=== PATIENT | female | born 2000 | race Caucasian/White ===

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

== ENCOUNTER 2020-09-11 00:42 | Inpatient (IN) | payer BC ==
[2020-09-11] MEDS ORDERED: Misoprostol 25 MCG (1/4 of 100 MCG) Tab PO PRN (01:37)
[2020-09-11] MEDS ORDERED: Terbutaline 1 MG/ML SDV SUBCUT PRN (01:37)
[2020-09-11] MEDS ORDERED: Misoprostol 25 MCG (1/4 of 100 MCG) Tab VAG PRN (01:37)
[2020-09-11] MEDS ORDERED: Oxytocin/0.9 % Sodium Chloride 30 UNIT/500 ML BAG IV SCH (01:45)
[2020-09-11] MEDS ORDERED: Nalbuphine 10 MG/1 ML Vial IVPUSH PRN (03:51)
[2020-09-11] MEDS ORDERED: Nalbuphine 10 MG/1 ML Vial ONE (03:55)
[2020-09-11] MEDS ORDERED: Nalbuphine 10 MG/1 ML Vial IVPUSH ONE (05:00)
[2020-09-11] MEDS: Lactated Ringers 1,000 ML IV SCH ×3 (05:05→10:48)
[2020-09-11] MEDS ORDERED: Lactated Ringers 1,000 ML IV SCH (05:15)
[2020-09-11] MEDS ORDERED: Ropivacaine HCl/PF 200 ML ONE (05:20)
[2020-09-11] MEDS ORDERED: Bupivacaine 0.25% 10 ML SDV ONE (05:20)
--- NOTE | 2020-09-11 05:25 | PCM.LDHP ---
L&D History of Present Illness - General Date of Service: 09/11/20 Admit Problem/Dx: Admission Diagnosis/Problem Admission Diagnosis/Problem 09/11/20 05:19 Dayan is a 19 yo at 41+0 wks (MICHELLE([place]) 09/04/2020) that presents today for post-dates cytotec to pitocin IOL. Reports +FM. Denies LOF, uterine contractions, vaginal bleeding upon arrival. O neg/Ab neg, RI, GBS neg. Last seen in office 2 days ago, IOL with cervical ripening techniques discussed, consents signed. Discussed once more and verbally confirms she desires to continue with IOL today. Denies any other complaints or concerns at this time and desires to continue with IOL. Source of Information: Patient History Limitations: Reports: No Limitations - History of Present Illness Pain Score: 7 Improves with: Reports: None Worsens with: Reports: None Associated Symptoms: Reports: N - Related Data Allergies/Adverse Reactions: Allergies Allergy/AdvReac Type Severity Reaction Status Date / Time No Known Allergies Allergy Verified 09/04/20 13:56 Home Medications: Home Meds . [No Known Home Meds] 06/30/19 [History] Past Medical History - Past Health History Medical/Surgical History: Denies Medical/Surgical History HEENT History: Reports: None Cardiovascular History: Reports: None Respiratory History: Reports: None Gastrointestinal History: Reports: None Genitourinary History: Reports: None RECEPTIONIST/TELEPHONE OPERATOR History: Reports: None : 1 Para: 0 Musculoskeletal History: Reports: None Neurological History: Reports: None Psychiatric History: Reports: Anxiety, Depression Endocrine/Metabolic History: Reports: None Insulin Pump Model and Ent Consultant: None Hematologic History: Reports: None, Other (See Below) (Rh neg, maternal) Immunologic History: Reports: None Oncologic (Cancer) History: Reports: None Dermatologic History: Reports: None - Infectious Disease History Infectious Disease History: Reports: None - Past Surgical History Head Surgeries/Procedures: Reports: None Other Musculoskeletal Surgeries/Procedures:: General anesthetic for closed reduction of a right arm fracture. Social & Family History - Family History Family Medical History: No Pertinent Family History - Tobacco Use Tobacco Use Status *Q: Current Every Day Tobacco User Years of Tobacco use: 5 Packs/Tins Daily: 0.2 Second Hand Smoke Exposure: Yes - Caffeine Use Caffeine Use: Reports: Energy Drinks Other Caffeine Use: daily Caffeine Use Comment: not every day - Recreational Drug Use Recreational Drug Use: Yes Drug Use in Last 12 Months: Yes Recreational Drug Type: Reports: Marijuana/Hashish Recreational Drug Use Frequency: Weekly H&P Review of Systems - Review of Systems: Review Of Systems: Comprehensive ROS is negative, except as noted in HPI. General: Reports: No Symptoms HEENT: Reports: No Symptoms Pulmonary: Reports: No Symptoms Cardiovascular: Reports: No Symptoms Gastrointestinal: Reports: No Symptoms Genitourinary: Reports: No Symptoms Musculoskeletal: Reports: No Symptoms Skin: Reports: No Symptoms Psychiatric: Reports: No Symptoms Neurological: Reports: No Symptoms Hematologic/Lymphatic: Reports: No Symptoms Immunologic: Reports: No Symptoms L&D Exam - Exam Exam: See Below - Vital Signs Vital Signs: VSS, afebrile. See flowsheet. Weight: 190 lb - OB Specific Fundal Height In cm: 39 Contraction Duration (sec): 0 Contraction Frequency (min): 0 Movement: Active Heart Tones: Present Heart Tones per Min: 125 Heart Rate (FHR) Variability: Moderate (6-25 bmp) Presentation: Vertex (via SVE) - Pak Score Pak Score Cervix Position: Midposition Pak Score Consistency: Medium Pak Score Effacement: >80% Pak Score Dilation: 1-2 cm Pak Score Infant's Station: -2 Pak Score Total: 7 - Exam General: Alert, Oriented, Cooperative HEENT: Conjunctiva Clear, Hearing Intact, Mucosa Moist & [place], PERRLA Neck: Supple, Trachea Midline Lungs: Clear to Auscultation, Normal Respiratory Effort Cardiovascular: Regular Rate, Regular Rhythm GI/Abdominal Exam: Normal Bowel Sounds, Soft, Non-Tender, No Organomegaly, No Distention Rectal Exam: Deferred Genitourinary: Normal external exam, Normal bimanual exam, Enlarged uterus (Gravid uterus) Back Exam: Normal Inspection, Full Range of Motion Extremities: Normal Inspection, Normal Range of Motion, Non-Tender, No Pedal Edema, Normal Capillary Refill Skin: Warm, Dry, Intact Neurological: Cranial Nerves Intact, Reflexes Equal Bilateral Psychiatric: Alert, Normal Affect, Normal Mood - Patient Data Lab Results Last 24 hrs: Laboratory Results - last 24 hr 09/11/20 09/11/20 09/11/20 Range/Units 00:45 00:45 01:50 WBC 12.41 H (4.0-11.0) K/uL RBC 3.06 L (4.30-5.90) M/uL Hgb 10.2 L (12.0-16.0) g/dL Hct 30.2 L (36.0-46.0) % MCV 98.7 H (80.0-98.0) fL MCH 33.3 H (27.0-32.0) pg MCHC 33.8 (31.0-37.0) g/dL RDW Std Deviation 46.0 (28.0-62.0) fl RDW Coeff of [place] 13 (11.0-15.0) % Plt Count 198 (150-400) K/uL MPV 12.00 (7.40-12.00) fL Neut % (Auto) 73.9 (48.0-80.0) % Lymph % (Auto) 20.2 (16.0-40.0) % [place] % (Auto) 5.6 (0.0-15.0) % Eos % (Auto) 0.1 (0.0-7.0) % Baso % (Auto) 0.2 (0.0-1.5) % Neut # (Auto) 9.2 H (1.4-5.7) K/uL Lymph # (Auto) 2.5 H (0.6-2.4) K/uL [place] # (Auto) 0.7 (0.0-0.8) K/uL Eos # (Auto) 0.0 (0.0-0.7) K/uL Baso # (Auto) 0.0 (0.0-0.1) K/uL Nucleated RBC % 0.0 /100WBC Nucleated RBCs # 0 K/uL SARS-CoV-2 RNA (SARAHI) NEGATIVE (NEGATIVE) Blood Type O NEGATIVE Antibody Screen NEGATIVE Result Diagrams: 09/11/20 00:45 - Problem List (1) Encounter for induction of labor SNOMED Code(s): 875752121 ICD Code: Z34.90 - ENCNTR FOR SUPRVSN OF NORMAL , UNSP, UNSP TRIMESTER Status: Acute Priority: High Current Visit: Yes (2) Post-dates SNOMED Code(s): 68497608 ICD Code: O48.0 - POST-TERM Status: Acute Priority: High Current Visit: Yes Qualifiers: Post-term type: 40-42 weeks gestation Qualified Code(s): O48.0 - Post-term (3) 41 weeks gestation of SNOMED Code(s): 23251520 ICD Code: Z3A.41 - 41 WEEKS GESTATION OF Status: Acute Priority: High Current Visit: Yes Problem List Initiated/Reviewed/Updated: Yes Orders Last 24hrs: Active Orders 24 hr Category Date Time Status Bedrest Bathroom Privileges [RC] ASDIRECTED Care 09/11/20 01:37 Active Communication Order [RC] ASDIRECTED Care 09/11/20 01:37 Active Communication Order [RC] ASDIRECTED Care 09/11/20 01:37 Active Communication Order [RC] ASDIRECTED Care 09/11/20 01:37 Active Notify Provider [RC] PRN Care 09/11/20 01:37 Active Notify Provider [RC] PRN Care 09/11/20 01:37 Active Notify Provider [RC] STAT Care 09/11/20 01:37 Active Oxygen Therapy [RC] ASDIRECTED Care 09/11/20 01:37 Active Vaginal Exam [RC] PRN Care 09/11/20 01:37 Active Vital Signs [RC] PER UNIT ROUTINE Care 09/11/20 01:37 Active RPR (SYPHILIS SERO) W/ RFLX [REF] Routine Lab 09/11/20 00:45 Received Lactated Ringers [Ringers, Lactated] 1,000 ml Med 09/11/20 05:15 Active IV .BOLUS Lactated Ringers [Ringers, Lactated] 1,000 ml Med 09/11/20 05:15 Active IV ASDIRECTED Nalbuphine [Nubain] Med 09/11/20 03:51 Active 10 mg IVPUSH ONETIME PRN Oxytocin/0.9 % Sodium Chloride [Oxytocin 30 Unit/500 ML Med 09/11/20 01:45 Active -NS] 30 unit in 500 ml IV TITRATE Terbutaline [Brethine] Med 09/11/20 01:37 Active 0.25 mg SUBCUT ASDIRECTED PRN miSOPROStoL [Cytotec] Med 09/11/20 01:37 Active 25 mcg PO Q4H PRN miSOPROStoL [Cytotec] Med 09/11/20 01:37 Active 25 mcg VAG ONETIME PRN Medication Administration Instruction [OM.PC] Q3H Oth 09/11/20 01:45 Ordered Medication Orders Oxytocin/Sodium Chloride (Oxytocin 30 Unit/500 Ml-Ns) 30 unit in 500 mls @ 2 mls/hr IV TITRATE RONAN; Protocol Lactated Ringer's (Ringers, Lactated) 1,000 mls @ 150 mls/hr IV ASDIRECTED RONAN Last Admin: 09/11/20 05:05 Dose: 150 mls/hr Documented by: SARA Lactated Ringer's (Ringers, Lactated) 1,000 mls @ 999 mls/hr IV .BOLUS RONAN Misoprostol (Misoprostol 25 Mcg (1/4 Of 100 Mcg) Tab) 25 mcg VAG ONETIME PRN PRN Reason: Cervical Ripening Last Admin: 09/11/20 02:00 Dose: 25 mcg Documented by: SARA Misoprostol (Misoprostol 25 Mcg (1/4 Of 100 Mcg) Tab) 25 mcg PO Q4H PRN PRN Reason: Cervical Ripening Last Admin: 09/11/20 02:00 Dose: 25 mcg Documented by: SARA Nalbuphine HCl (Nalbuphine 10 Mg/1 Ml Vial) 10 mg IVPUSH ONETIME PRN PRN Reason: Pain (moderate 4-6) Terbutaline Sulfate (Terbutaline 1 Mg/Ml Sdv) 0.25 mg SUBCUT ASDIRECTED PRN PRN Reason: Tacysystole Assessment/Plan Comment:: Admit for observation to L&D for planned post-dates cytotec to pitocin IOL. Regular diet. May ambulate ad judi. Intermittent EFM: once reactive NST is obtained, or as indicated. May receive epidural >/=5 cm[address] See new orders. Dr. Corbett notified and agreeable with POC.
--- NOTE | 2020-09-11 05:54 | PCM.PREANE ---
Preanesthetic Assessment - Anesthesia/Transfusion/Family Hx Anesthesia History: Prior Anesthesia Without Reaction Family History of Anesthesia Reaction: No Transfusion History: No Prior Transfusion(s) - Review of Systems General: No Symptoms Pulmonary: No Symptoms Cardiovascular: No Symptoms Gastrointestinal: No Symptoms Neurological: No Symptoms Other: Reports: None - Physical Assessment Height: 5 ft 7 in Weight: 190 lb ASA Class: 2E Mental Status: Alert & Oriented x3 Dentition: Reports: Normal Dentition ROM/Head Extension: Full Lungs: Clear to Auscultation, Normal Respiratory Effort Cardiovascular: Regular Rate, Regular Rhythm - Lab Values: Laboratory Last Values WBC 12.41 K/uL (4.0-11.0) H 09/11/20 00:45 RBC 3.06 M/uL (4.30-5.90) L 09/11/20 00:45 Hgb 10.2 g/dL (12.0-16.0) L 09/11/20 00:45 Hct 30.2 % (36.0-46.0) L 09/11/20 00:45 MCV 98.7 fL (80.0-98.0) H 09/11/20 00:45 MCH 33.3 pg (27.0-32.0) H 09/11/20 00:45 MCHC 33.8 g/dL (31.0-37.0) 09/11/20 00:45 RDW Std Deviation 46.0 fl (28.0-62.0) 09/11/20 00:45 RDW Coeff of Luba 13 % (11.0-15.0) 09/11/20 00:45 Plt Count 198 K/uL (150-400) 09/11/20 00:45 MPV 12.00 fL (7.40-12.00) 09/11/20 00:45 Neut % (Auto) 73.9 % (48.0-80.0) 09/11/20 00:45 Lymph % (Auto) 20.2 % (16.0-40.0) 09/11/20 00:45 [place] % (Auto) 5.6 % (0.0-15.0) 09/11/20 00:45 Eos % (Auto) 0.1 % (0.0-7.0) 09/11/20 00:45 Baso % (Auto) 0.2 % (0.0-1.5) 09/11/20 00:45 Neut # (Auto) 9.2 K/uL (1.4-5.7) H 09/11/20 00:45 Lymph # (Auto) 2.5 K/uL (0.6-2.4) H 09/11/20 00:45 [place] # (Auto) 0.7 K/uL (0.0-0.8) 09/11/20 00:45 Eos # (Auto) 0.0 K/uL (0.0-0.7) 09/11/20 00:45 Baso # (Auto) 0.0 K/uL (0.0-0.1) 09/11/20 00:45 Nucleated RBC % 0.0 /100WBC 09/11/20 00:45 Nucleated RBCs # 0 K/uL 09/11/20 00:45 SARS-CoV-2 RNA (SARAHI) NEGATIVE (NEGATIVE) 09/11/20 01:50 Blood Type O NEGATIVE 09/11/20 00:45 Antibody Screen NEGATIVE 09/11/20 00:45 - Allergies Allergies/Adverse Reactions: Allergies Allergy/AdvReac Type Severity Reaction Status Date / Time No Known Allergies Allergy Verified 09/04/20 13:56 - Anesthesia Plan Pre-Op Medication Ordered: None - Acknowledgements Anesthesia Type Planned: Epidural Pt an Appropriate Candidate for the Planned Anesthesia: Yes Alternatives and Risks of Anesthesia Discussed w Pt/Guardian: Yes Pt/Guardian Understands and Agrees with Anesthesia Plan: Yes PreAnesthesia Questionnaire - Past Health History Medical/Surgical History: Denies Medical/Surgical History HEENT History: Reports: None Cardiovascular History: Reports: None Respiratory History: Reports: None Gastrointestinal History: Reports: None Genitourinary History: Reports: None CRIMINALIST History: Reports: None Musculoskeletal History: Reports: None Neurological History: Reports: None Psychiatric History: Reports: Anxiety, Depression Endocrine/Metabolic History: Reports: None Hematologic History: Reports: None, Other (See Below) (Rh neg, maternal) Immunologic History: Reports: None Oncologic (Cancer) History: Reports: None Dermatologic History: Reports: None - Infectious Disease History Infectious Disease History: Reports: None - Past Surgical History Head Surgeries/Procedures: Reports: None Other Musculoskeletal Surgeries/Procedures:: General anesthetic for closed reduction of a right arm fracture. - SUBSTANCE USE Tobacco Use Status *Q: Current Every Day Tobacco User Tobacco Use Within Last Twelve Months: Vaping Second Hand Smoke Exposure: Yes Recreational Drug Use History: Yes Recreational Drug Type: Reports: Marijuana/Hashish - HOME MEDS Home Medications: Home Meds . [No Known Home Meds] 06/30/19 [History] - CURRENT (IN HOUSE) MEDS Current Meds: Current Medications Oxytocin/Sodium Chloride (Oxytocin 30 Unit/500 Ml-Ns) 30 unit in 500 mls @ 2 mls/hr IV TITRATE RONNA; Protocol Lactated Ringer's (Ringers, Lactated) 1,000 mls @ 150 mls/hr IV ASDIRECTED RONAN Last Admin: 09/11/20 05:05 Dose: 150 mls/hr Documented by: Lactated Ringer's (Ringers, Lactated) 1,000 mls @ 999 mls/hr IV .BOLUS RONAN Misoprostol (Misoprostol 25 Mcg (1/4 Of 100 Mcg) Tab) 25 mcg VAG ONETIME PRN PRN Reason: Cervical Ripening Last Admin: 09/11/20 02:00 Dose: 25 mcg Documented by: Misoprostol (Misoprostol 25 Mcg (1/4 Of 100 Mcg) Tab) 25 mcg PO Q4H PRN PRN Reason: Cervical Ripening Last Admin: 09/11/20 02:00 Dose: 25 mcg Documented by: Nalbuphine HCl (Nalbuphine 10 Mg/1 Ml Vial) 10 mg IVPUSH ONETIME PRN PRN Reason: Pain (moderate 4-6) Terbutaline Sulfate (Terbutaline 1 Mg/Ml Sdv) 0.25 mg SUBCUT ASDIRECTED PRN PRN Reason: Tacysystole Discontinued Medications Bupivacaine HCl (Bupivacaine 0.25% 10 Ml Sdv) Confirm Administered Dose 10 ml .ROUTE .STK-MED ONE Stop: 09/11/20 05:21 Ropivacaine (Naropin 0.2%) Confirm Administered Dose 200 mls @ as directed .ROUTE .STK-MED ONE Stop: 09/11/20 05:21 Nalbuphine HCl (Nalbuphine 10 Mg/1 Ml Vial) Confirm Administered Dose 10 mg .ROUTE .STK-MED ONE Stop: 09/11/20 03:56 Last Admin: 09/11/20 04:07 Dose: 10 mg Documented by: Nalbuphine HCl (Nalbuphine 10 Mg/1 Ml Vial) 10 mg IVPUSH ONETIME ONE Stop: 09/11/20 05:01 Last Admin: 09/11/20 05:01 Dose: 10 mg Documented by: - Pre-Procedure Checklist Attending Provider Aware: Yes Chart Reviewed: Yes Consent Signed: Yes Labs Reviewed: Yes VS/FHR Reviewed: Yes Patient Identification Confirmation Method: Reports: Verbal Patient Pt an Appropriate Candidate for the Planned Anesthesia: Yes Alternatives and Risks of Anesthesia Discussed w Pt/Guardian: Yes - Procedure Procedure Start Date: 09/11/20 Procedure Start Time: 05:[address]: Reports: Blood Pressure, Heart Rate, SPO2 Functional IV: Yes Safety Measures: Reports: Patient Identified, Procedure Verified, Site Verified, Procedure Time Out Patient Position: Reports: Sitting Prep: Reports: Betadine x3 Local Anesthetic: Reports: Intradermal Wheal w Lidocaine 1% Regional Placement Level: Reports: L3-4 Needle: Reports: 17 g Touhy Approach: Reports: Midline Technique: Reports: SCOTTY Plastic Syringe Parasthesia: Reports: None Fluid Obtained: Reports: None Test Dose Time: 05:31 Test Dose Medication: Reports: Lidocaine 1.5% w Epinephrine 1:200,000 Test Dose Response: Reports: Negative Loading Dose Time: 05:30 Loading Dose Medication: bupivicaine 0.25% 10cc Loading Dose Patient Position: sitting Continuous Infusion Start Time: 05:32 Continuous Infusion Medication: ropivicaine 0.2% Continuous Infusion Rate: 16 Continuous Infusion PCS Bolus Option: 4 Continuous Infusion Lockout Dose (cc/hr): 15 Patient Position Post Placement: Reports: [place]/CLOVIS VS and FHR Monitored in Unit Post Placement: Yes Procedure End Date: 09/11/20 Procedure End Time: 05:35
[2020-09-11] MEDS ORDERED: Lidocaine 2% 5 ML SDV ONE (06:00)
--- NOTE | 2020-09-11 09:14 | PCM.POSTAN ---
POST ANESTHESIA ASSESSMENT - MENTAL STATUS Mental Status: Alert, Oriented - RESPIRATORY Respiratory Status: Respiratory Rate WNL, Airway Patent, O2 Saturation Stable - CARDIOVASCULAR CV Status: Pulse Rate WNL, Blood Pressure Stable - GASTROINTESTINAL GI Status: No Symptoms - POST OP HYDRATION Hydration Status: Adequate & Stable
--- NOTE | 2020-09-11 09:15 | PCM48HPAN ---
Post Anesthesia Note - EVALUATION WITHIN 48HRS OF ANESTHETIC Vital Signs in Normal Range: Yes Patient Participated in Evaluation: Yes Respiratory Function Stable: Yes Airway Patent: Yes Cardiovascular Function Stable: Yes Hydration Status Stable: Yes Pain Control Satisfactory: Yes Nausea and Vomiting Control Satisfactory: Yes Mental Status Recovered: Yes
[2020-09-11] MEDS ORDERED: Ondansetron 4 MG/2 ML SDV IVPUSH PRN (10:08)
[2020-09-11] MEDS ORDERED: Misoprostol 200 MCG Tab RECTAL PRN (12:35)
[2020-09-11] MEDS ORDERED: Witch Hazel Medicated Pads 40/Jar TOP PRN (12:35)
[2020-09-11] MEDS ORDERED: Benzocaine/Menthol 20%-0.5% Spray 78 GM Cannister TOP PRN (12:35)
[2020-09-11] MEDS ORDERED: Lanolin 100% Cream 7 GM Tube TOP PRN (12:35)
[2020-09-11] MEDS ORDERED: Carboprost Tromethamine 250 MCG/1 ML Amp IM PRN (12:35)
[2020-09-11] MEDS ORDERED: Ibuprofen 400 MG Tab PO PRN (12:35)
[2020-09-11] MEDS ORDERED: Methylergonovine 0.2 MG/1 ML Amp IM PRN (12:35)
[2020-09-11] MEDS ORDERED: oxyCODONE 5 MG Tab PO PRN (12:35)
[2020-09-11] MEDS ORDERED: Docusate Sodium 100 MG Cap PO PRN (12:35)
[2020-09-11] MEDS ORDERED: Acetaminophen 500 MG Tab PO PRN ×2 (12:35)
[2020-09-11] MEDS ORDERED: Oxytocin 10 Units/1 ML SDV IM PRN (12:35)
[2020-09-11] MEDS ORDERED: Bisacodyl 10 MG Supp RECTAL PRN (12:35)
--- NOTE | 2020-09-11 12:40 | PCM.DEL ---
L & D Note - General Info Date of Service: 09/11/20 Mother's Due Date: 09/04/20 - Delivery Note Labor: Augmented by ARM Cervical Ripening Method: Misoprostil Delivery Outcome: Livebirth Delivery Method: Spontaneous Vaginal Delivery-Single Infant Delivery Mode: Spontaneous Presentation: Left Occiput Anterior (ADDY) (via compound right hand) Nuchal Cord: None Anesthesia Type: Epidural Amniotic Fluid Description: Clear Episiotomy Type: None Laceration: 2nd Degree, Labial (2nd degree left labia, repaired with 3.[address], hemostatic.) Suture type: Vicryl Suture size: 3-0 Placenta: Intact, Spontaneous Cord: 3 Vessels Estimated Blood Loss: 300 : Bulb Syringe, Stimulated, Warmed, [place] Used Score 1 min: 8 Score 5 min: 9 Second Stage Interventions: Reports: Encouragement Given, Pushing Effectively, Pushing, Pulls Own Legs Back, Pushing, Stirrups/Leg Supports Delivery Comments (Free Text/Narrative):: Dayan is a 19 yo current s/p uncomplicated of viable, term NBM at 41+0 wks (MICHELLE([place]) 09/04/2020) following post-dates cytotec to pitocin IOL with AROM augmentation. O neg/Ab neg, RI, GBS neg. Adequate epidural analgesia. Cephalic presentation. head delivered ADDY with compound right hand spontaneously, body following shortly after with the next push. NBM placed to maternal abdomen, warmed, dried, stimulated with spontaneous cries. Umbilical cord left intact for ~3-4 min, clamped x 2, cut by FOB. Pitocin bolus commenced, gentle cord traction applied for active third stage management. Placenta birthed ~7-8 min S/P NBM, intact, [place], 3VC. Perineum inspected, 2nd degree laceration to left labia noted, repaired with 3.[address], hemostatic Uterus firm @U. Small vaginal bleeding noted, no clots. EBL 300 ml. APGARS 8/9. weight 7 lb 3 oz (3260 g). NBM ABO-Rh (cord blood) pending. - General Info Date of Service: 09/11/20 Admission Dx/Problem (Free Text): Admission Diagnosis/Problem Admission Diagnosis/Problem 09/11/20 05:19 Dayan is a 19 yo at 41+0 wks (MICHELLE([place]) 09/04/2020) that presents today for post- dates cytotec to pitocin IOL. Reports +FM. Denies LOF, uterine contractions, vaginal bleeding upon arrival. O neg/Ab neg, RI, GBS neg. Last seen in office 2 days ago, IOL with cervical ripening techniques discussed, consents signed. Discussed once more and verbally confirms she desires to continue with IOL to day. Denies any other complaints or concerns at this time and desires to continue with IOL. Functional Status: Reports: Pain Controlled, Tolerating Diet - Review of Systems General: Reports: No Symptoms HEENT: Reports: No Symptoms Pulmonary: Reports: No Symptoms Cardiovascular: Reports: No Symptoms Gastrointestinal: Reports: No Symptoms Genitourinary: Reports: No Symptoms Musculoskeletal: Reports: No Symptoms Skin: Reports: No Symptoms Neurological: Reports: No Symptoms Psychiatric: Reports: No Symptoms - Patient Data Vitals - Most Recent: VSS, afebrile. See flowsheet. Weight - Most Recent: 190 lb I&O - Last 24 Hours: Intake & Output 09/10/20 09/11/20 09/11/20 22:59 06:59 14:59 Intake Total 1000 200 Output Total 90 Balance 1000 -68$ Lab Results Last 24 Hours: Laboratory Results - last 24 hr 09/11/20 09/11/20 09/11/20 Range/Units 00:45 00:45 01:50 WBC 12.41 H (4.0-11.0) K/uL RBC 3.06 L (4.30-5.90) M/uL Hgb 10.2 L (12.0-16.0) g/dL Hct 30.2 L (36.0-46.0) % MCV 98.7 H (80.0-98.0) fL MCH 33.3 H (27.0-32.0) pg MCHC 33.8 (31.0-37.0) g/dL RDW Std Deviation 46.0 (28.0-62.0) fl RDW Coeff of Luba 13 (11.0-15.0) % Plt Count 198 (150-400) K/uL MPV 12.00 (7.40-12.00) fL Neut % (Auto) 73.9 (48.0-80.0) % Lymph % (Auto) 20.2 (16.0-40.0) % [place] % (Auto) 5.6 (0.0-15.0) % Eos % (Auto) 0.1 (0.0-7.0) % Baso % (Auto) 0.2 (0.0-1.5) % Neut # (Auto) 9.2 H (1.4-5.7) K/uL Lymph # (Auto) 2.5 H (0.6-2.4) K/uL [place] # (Auto) 0.7 (0.0-0.8) K/uL Eos # (Auto) 0.0 (0.0-0.7) K/uL Baso # (Auto) 0.0 (0.0-0.1) K/uL Nucleated RBC % 0.0 /100WBC Nucleated RBCs # 0 K/uL SARS-CoV-2 RNA (SARAHI) NEGATIVE (NEGATIVE) Blood Type O NEGATIVE Antibody Screen NEGATIVE Med Orders - Current: Current Medications Acetaminophen (Acetaminophen 500 Mg Tab) 500 mg PO Q4H PRN PRN Reason: Pain (mild 1-3) Acetaminophen (Acetaminophen 500 Mg Tab) 1,000 mg PO Q4H PRN PRN Reason: Pain (mild 1-3) Benzocaine/Menthol (Benzocaine/Menthol 20%-0.5% [place] 78 Gm Cannister) 78 gm TOP ASDIRECTED PRN PRN Reason: Perineal Comfort Measure Bisacodyl (Bisacodyl 10 Mg Supp) 10 mg RECTAL ONETIME PRN PRN Reason: Constipation Carboprost Tromethamine (Carboprost Tromethamine 250 Mcg/1 Ml Amp) 250 mcg IM ASDIRECTED PRN PRN Reason: Excessive vaginal bleeding Emollient Ointment (Lanolin 100% Cream 7 Gm Tube) 0 gm TOP ASDIRECTED PRN PRN Reason: Sore Nipples Ibuprofen (Ibuprofen 400 Mg Tab) 400 mg PO Q4H PRN PRN Reason: Pain (mild 1-3) Ibuprofen (Ibuprofen 800 Mg Tab) 800 mg PO Q6H PRN PRN Reason: Pain (mild 1-3) Methylergonovine Maleate (Methylergonovine 0.2 Mg/1 Ml Amp) 0.2 mg IM ONETIME PRN PRN Reason: Excessive Vaginal Bleeding Misoprostol (Misoprostol 200 Mcg Tab) 1,000 mcg RECTAL ONETIME PRN PRN Reason: excessive vaginal bleeding Oxycodone HCl (Oxycodone 5 Mg Tab) 5 mg PO Q2H PRN PRN Reason: Pain (severe 7-10) Oxytocin (Oxytocin 10 Units/1 Ml Sdv) 10 unit IM ASDIRECTED PRN PRN Reason: Bleeding Polysaccharide Iron Complex (Iron Polysaccharides Complex 150 Mg Cap) 150 mg PO DAILY [facility] Witch Lala (Witch Lala Medicated Pads 40/Jar) 1 pad TOP ASDIRECTED PRN PRN Reason: comfort care Discontinued Medications Bupivacaine HCl (Bupivacaine 0.25% 10 Ml Sdv) Confirm Administered Dose 10 ml .ROUTE .STK-MED ONE Stop: 09/11/20 05:21 Docusate Sodium (Docusate Sodium 100 Mg Cap) 100 mg PO Q12H PRN PRN Reason: Constipation Oxytocin/Sodium Chloride (Oxytocin 30 Unit/500 Ml-Ns) 30 unit in 500 mls @ 2 mls/hr IV TITRATE RONAN; Protocol Lactated Ringer's (Ringers, Lactated) 1,000 mls @ 150 mls/hr IV ASDIRECTED RONAN Last Admin: 09/11/20 10:48 Dose: 150 mls/hr Documented by: Lactated Ringer's (Ringers, Lactated) 1,000 mls @ 999 mls/hr IV .BOLUS RONAN Ropivacaine (Naropin 0.2%) Confirm Administered Dose 200 mls @ as directed .ROUTE .STK-MED ONE Stop: 09/11/20 05:21 Lidocaine (Lidocaine 2% 5 Ml Sdv) Confirm Administered Dose 10 ml .ROUTE .STK- MED ONE Stop: 09/11/20 06:01 Misoprostol (Misoprostol 25 Mcg (1/4 Of 100 Mcg) Tab) 25 mcg VAG ONETIME PRN PRN Reason: Cervical Ripening Last Admin: 09/11/20 02:00 Dose: 25 mcg Documented by: Misoprostol (Misoprostol 25 Mcg (1/4 Of 100 Mcg) Tab) 25 mcg PO Q4H PRN PRN Reason: Cervical Ripening Last Admin: 09/11/20 02:00 Dose: 25 mcg Documented by: Nalbuphine HCl (Nalbuphine 10 Mg/1 Ml Vial) 10 mg IVPUSH ONETIME PRN PRN Reason: Pain (moderate 4-6) Nalbuphine HCl (Nalbuphine 10 Mg/1 Ml Vial) Confirm Administered Dose 10 mg .ROUTE .STK-MED ONE Stop: 09/11/20 03:56 Last Admin: 09/11/20 04:07 Dose: 10 mg Documented by: Nalbuphine HCl (Nalbuphine 10 Mg/1 Ml Vial) 10 mg IVPUSH ONETIME ONE Stop: 09/11/20 05:01 Last Admin: 09/11/20 05:01 Dose: 10 mg Documented by: Ondansetron HCl (Ondansetron 4 Mg/2 Ml Sdv) 4 mg IVPUSH Q4H PRN PRN Reason: Nausea Last Admin: 09/11/20 10:26 Dose: 4 mg Documented by: Terbutaline Sulfate (Terbutaline 1 Mg/Ml Sdv) 0.25 mg SUBCUT ASDIRECTED PRN PRN Reason: Tacysystole - Exam Urinary Catheter Total Time: 0Days 3Hours General: Alert, Oriented, Cooperative, No Acute Distress HEENT: Pupils Equal, Mucous Membr. Moist/[place] Neck: Supple Lungs: Clear to Auscultation, Normal Respiratory Effort Cardiovascular: Regular Rate, Regular Rhythm GI/Abdominal Exam: Normal Bowel Sounds, Soft, Non-Tender, No Organomegaly, No Distention (Female) Exam: Normal External Exam, Enlarged Uterus ( uterus, firm @U), Vaginal Bleeding (Small rubra lochia, no clots.) Back Exam: Normal Inspection, Full Range of Motion Extremities: Normal Inspection, Normal Range of Motion, Non-Tender, No Pedal Edema, Normal Capillary Refill Skin: Warm, Dry, Intact Wound/Incisions: No Drainage Neurological: No New Focal Deficit (BLE epidural in place, pain well controlled.) Psy/Mental Status: Alert, Normal Affect, Normal Mood - Problem List & Annotations (1) (spontaneous vaginal delivery) SNOMED Code(s): 485587010 Code(s): O80 - ENCOUNTER FOR FULL-TERM UNCOMPLICATED DELIVERY Status: Acute Priority: High Current Visit: Yes (2) Lactating mother SNOMED Code(s): 920918923, 436061886 Code(s): Z39.1 - ENCOUNTER FOR CARE AND EXAMINATION OF LACTATING MOTHER Status: Acute Priority: High Current Visit: Yes - Problem List Review Problem List Initiated/Reviewed/Updated: Yes - My Orders Last 24 Hours: My Active Orders 09/11/20 12:35 Patient Status [ADT] Routine May Shower [RC] ASDIRECTED Up ad Lary [RC] ASDIRECTED Vital Signs [RC] PER UNIT ROUTINE Acetaminophen [Tylenol Extra Strength] 1,000 mg PO Q4H PRN Acetaminophen [Tylenol Extra Strength] 500 mg PO Q4H PRN Benzocaine/Menthol [Dermoplast Pain Relief 20%-0.5% [place]] 78 gm TOP ASDIRECTED PRN Carboprost Tromethamine [Hemabate DS] 250 mcg IM ASDIRECTED PRN Ibuprofen [Motrin] 400 mg PO Q4H PRN Ibuprofen [Motrin] 800 mg PO Q6H PRN Lanolin [Lansinoh HPA] See Dose Instructions TOP ASDIRECTED PRN Methylergonovine [Methergine] 0.2 mg IM ONETIME PRN Oxytocin [Pitocin] 10 unit IM ASDIRECTED PRN bisacodyL [Dulcolax] 10 mg RECTAL ONETIME PRN miSOPROStoL [Cytotec] 1,000 mcg RECTAL ONETIME PRN oxyCODONE 5 mg PO Q2H PRN witch Lala [[place]] 1 pad TOP ASDIRECTED PRN Assess Lochia [WOMSER] Per Unit Routine Assess Uterine Involution [WOMSER] Per Unit Routine Peripheral IV Discontinue [OM.PC] Routine Resuscitation Status Routine 09/11/20 12:36 Cooling Warming Measures [RC] ASDIRECTED Ice Therapy [OM.PC] Per Unit Routine Perineal Care [OM.PC] Per Unit Routine Sitz Bath [OM.PC] Per Unit Routine 09/11/20 Dinner Regular Diet [DIET] 09/12/20 05:11 HEMOGLOBIN/HEMATOCRIT,HH [HEME] Timed 09/12/20 09:00 Docusate Sodium [Colace] 100 mg PO Q12H Iron Polysaccharides Complex [Ferrex 150] 150 mg PO DAILY - Plan Plan:: Admit inpatient to unit S/P of term, viable NBM. Regular diet as tolerated. Plan to D/C epidural now, may ambulate with assistance in 2-4 hours or when sensation returns. If patient does not void within 6 hours S/P delivery, notify provider. support may be provided if desired or needed. Baseline Hgb 10.2, start 150 mg iron supplementation once daily. H/H in am. See new orders. Dr. Corbett notified and agreeable with POC.
[2020-09-11] MEDS: Ibuprofen 800 MG Tab PO PRN ×2 (17:48→21:17)
[2020-09-11] MEDS: Docusate Sodium 100 MG Cap PO SCH (21:17)
--- NOTE | 2020-09-12 08:27 | PCM.DCSUM1 ---
Discharge Summary - Hospital Course Free Text/Narrative:: Dayan is a 19 yo current PPD1 s/p uncomplicated of viable, term NBM at 41+0 wks (MICHELLE([place]) 09/04/2020) following post-dates cytotec to pitocin IOL with AROM augmentation. O neg/A neg, Ab neg, RI, GBS neg. RhoGam not indicated. Patient has no complaints or concerns at this time. Patient is bottle feeding well, resting comfortably in bed with in arms. Patient reports she is eating, voiding, ambulating independently and without difficulty. Patient denies any problems or concerns at this time except moderate intermittent uterine cramping relieved with Ibuprofen. Patient reports small to moderate vaginal bleeding with no clots. Patient verbalizes her readiness to be discharged home today. Diagnosis: Stroke: No - Discharge Data Discharge Date: 09/12/20 Discharge Disposition: Home, Self-Care 01 Condition: Good - Referral to Home Health Primary Care Physician: PCP None - Discharge Diagnosis/Problem(s) (1) (spontaneous vaginal delivery) SNOMED Code(s): 356792613 ICD Code: O80 - ENCOUNTER FOR FULL-TERM UNCOMPLICATED DELIVERY Status: Acute Priority: High Current Visit: Yes (2) Lactating mother SNOMED Code(s): 189086590, 966504443 ICD Code: Z39.1 - ENCOUNTER FOR CARE AND EXAMINATION OF LACTATING MOTHER Status: Acute Priority: High Current Visit: Yes - Patient Instructions Diet: Usual Diet as Tolerated, Regular Diet as Tolerated, Drink 8-10+ Glasses/Day Activity: As Tolerated, No Strenuous Activities, Rest and Relax Today Driving: May Drive Today Showering/Bathing: May Shower Showering/Bathing, Other: May sitz bathe for perineal comfort Wound/Incision Care: Keep Operative Site/Wound Site Clean and Dry Notify Provider of: Fever, Increased Pain, Swelling and Redness, Drainage, Nausea and/or Vomiting - Discharge Plan *PRESCRIPTION DRUG MONITORING PROGRAM REVIEWED*: No *COPY OF PRESCRIPTION DRUG MONITORING REPORT IN PATIENT DRAKE: No Prescriptions/Med Rec: Iron Polysaccharides Complex [Ferrex 150] 150 mg PO DAILY #30 cap Ibuprofen [Motrin] 800 mg PO Q8H PRN #90 tablet PRN Reason: Pain (Mild 1-3) Home Medications: Home Meds Ibuprofen [Motrin] 800 mg PO Q8H PRN #90 tablet 09/12/20 [Rx] Iron Polysaccharides Complex [Ferrex 150] 150 mg PO DAILY #30 cap 09/12/20 [Rx] Oxygen Therapy Mode: Room Air - Discharge Summary/Plan Comment DC Time >30 min.: Yes Discharge Summary/Plan Comment: Plan to D/C home this afternoon. Warning S/Ss, when to call for help discussed, no questions or concerns. RTO for 6 wk PPV. - General Info Date of Service: 09/12/20 Admission Dx/Problem (Free Text: Admission Diagnosis/Problem Admission Diagnosis/Problem 09/11/20 05:19 Dayan is a 19 yo at 41+0 wks (MICHELLE() 09/04/2020) that presents today for post- dates cytotec to pitocin IOL. Reports +FM. Denies LOF, uterine contractions, vaginal bleeding upon arrival. O neg/Ab neg, RI, GBS neg. Last seen in office 2 days ago, IOL with cervical ripening techniques discussed, consents signed. Discussed once more and verbally confirms she desires to continue with IOL today. Denies any other complaints or concerns at this time and desires to continue with IOL. Functional Status: Reports: Pain Controlled, Tolerating Diet, Ambulating, Urinating - Review of Systems General: Reports: No Symptoms HEENT: Reports: No Symptoms Pulmonary: Reports: No Symptoms Cardiovascular: Reports: No Symptoms Gastrointestinal: Reports: No Symptoms Genitourinary: Reports: No Symptoms Musculoskeletal: Reports: No Symptoms Skin: Reports: No Symptoms Neurological: Reports: No Symptoms Psychiatric: Reports: No Symptoms - Patient Data Vitals - Most Recent: Last Vital Signs Temp 98.6 F 09/12/20 05:39 Pulse 78 09/12/20 05:39 Resp 16 09/12/20 05:39 BP 107/57 L 09/12/20 05:39 Pulse Ox 95 09/12/20 05:39 Weight - Most Recent: 190 lb Lab Results - Last 24 hrs: Laboratory Results - last 24 hr 09/12/20 Range/Units 04:45 Hgb 8.4 L (12.0-16.0) g/dL Hct 25.1 L (36.0-46.0) % Med Orders - Current: Current Medications Acetaminophen (Acetaminophen 500 Mg Tab) 500 mg PO Q4H PRN PRN Reason: Pain (mild 1-3) Acetaminophen (Acetaminophen 500 Mg Tab) 1,000 mg PO Q4H PRN PRN Reason: Pain (mild 1-3) Benzocaine/Menthol (Benzocaine/Menthol 20%-0.5% [place] 78 Gm Cannister) 78 gm TOP ASDIRECTED PRN PRN Reason: Perineal Comfort Measure Last Admin: 09/11/20 15:28 Dose: 1 spray Documented by: Bisacodyl (Bisacodyl 10 Mg Supp) 10 mg RECTAL ONETIME PRN PRN Reason: Constipation Carboprost Tromethamine (Carboprost Tromethamine 250 Mcg/1 Ml Amp) 250 mcg IM ASDIRECTED PRN PRN Reason: Excessive vaginal bleeding Docusate Sodium (Docusate Sodium 100 Mg Cap) 100 mg PO Q12H ON LICENSE OF [facility] Last Admin: 09/11/20 21:17 Dose: 100 mg Documented by: Emollient Ointment (Lanolin 100% Cream 7 Gm Tube) 0 gm TOP ASDIRECTED PRN PRN Reason: Sore Nipples Ibuprofen (Ibuprofen 400 Mg Tab) 400 mg PO Q4H PRN PRN Reason: Pain (mild 1-3) Ibuprofen (Ibuprofen 800 Mg Tab) 800 mg PO Q6H PRN PRN Reason: Pain (mild 1-3) Last Admin: 09/11/20 17:48 Dose: 800 mg Documented by: Methylergonovine Maleate (Methylergonovine 0.2 Mg/1 Ml Amp) 0.2 mg IM ONETIME PRN PRN Reason: Excessive Vaginal Bleeding Misoprostol (Misoprostol 200 Mcg Tab) 1,000 mcg RECTAL ONETIME PRN PRN Reason: excessive vaginal bleeding Oxycodone HCl (Oxycodone 5 Mg Tab) 5 mg PO Q2H PRN PRN Reason: Pain (severe 7-10) Oxytocin (Oxytocin 10 Units/1 Ml Sdv) 10 unit IM ASDIRECTED PRN PRN Reason: Bleeding Polysaccharide Iron Complex (Iron Polysaccharides Complex 150 Mg Cap) 150 mg PO DAILY ON LICENSE OF [facility] Cainch Lala (Witch Lala Medicated Pads 40/Jar) 1 pad TOP ASDIRECTED PRN PRN Reason: comfort care Last Admin: 09/11/20 15:27 Dose: 1 pad Documented by: Discontinued Medications Bupivacaine HCl (Bupivacaine 0.25% 10 Ml Sdv) Confirm Administered Dose 10 ml .ROUTE .STK-MED ONE Stop: 09/11/20 05:21 Docusate Sodium (Docusate Sodium 100 Mg Cap) 100 mg PO Q12H PRN PRN Reason: Constipation Oxytocin/Sodium Chloride (Oxytocin 30 Unit/500 Ml-Ns) 30 unit in 500 mls @ 2 mls/hr IV TITRATE RONAN; Protocol Last Admin: 09/11/20 11:46 Dose: 999 munits/min, 999 mls/hr Documented by: Lactated Ringer's (Ringers, Lactated) 1,000 mls @ 150 mls/hr IV ASDIRECTED ROANN Last Infusion: 09/11/20 11:46 Dose: 0 mls/hr Documented by: Lactated Ringer's (Ringers, Lactated) 1,000 mls @ 999 mls/hr IV .BOLUS RONAN Ropivacaine (Naropin 0.2%) Confirm Administered Dose 200 mls @ as directed .ROUTE .STK-MED ONE Stop: 09/11/20 05:21 Lidocaine (Lidocaine 2% 5 Ml Sdv) Confirm Administered Dose 10 ml .ROUTE .STK- MED ONE Stop: 09/11/20 06:01 Misoprostol (Misoprostol 25 Mcg (1/4 Of 100 Mcg) Tab) 25 mcg VAG ONETIME PRN PRN Reason: Cervical Ripening Last Admin: 09/11/20 02:00 Dose: 25 mcg Documented by: Misoprostol (Misoprostol 25 Mcg (1/4 Of 100 Mcg) Tab) 25 mcg PO Q4H PRN PRN Reason: Cervical Ripening Last Admin: 09/11/20 02:00 Dose: 25 mcg Documented by: Nalbuphine HCl (Nalbuphine 10 Mg/1 Ml Vial) 10 mg IVPUSH ONETIME PRN PRN Reason: Pain (moderate 4-6) Nalbuphine HCl (Nalbuphine 10 Mg/1 Ml Vial) Confirm Administered Dose 10 mg .ROUTE .STK-MED ONE Stop: 09/11/20 03:56 Last Admin: 09/11/20 04:07 Dose: 10 mg Documented by: Nalbuphine HCl (Nalbuphine 10 Mg/1 Ml Vial) 10 mg IVPUSH ONETIME ONE Stop: 09/11/20 05:01 Last Admin: 09/11/20 05:01 Dose: 10 mg Documented by: Ondansetron HCl (Ondansetron 4 Mg/2 Ml Sdv) 4 mg IVPUSH Q4H PRN PRN Reason: Nausea Last Admin: 09/11/20 10:26 Dose: 4 mg Documented by: Terbutaline Sulfate (Terbutaline 1 Mg/Ml Sdv) 0.25 mg SUBCUT ASDIRECTED PRN PRN Reason: Tacysystole - Exam General: Reports: Alert, Oriented, Cooperative, No Acute Distress HEENT: Reports: Pupils Equal, Mucous Membr. Moist/[place] Neck: Reports: Supple Lungs: Reports: Clear to Auscultation, Normal Respiratory Effort Cardiovascular: Reports: Regular Rate, Regular Rhythm GI/Abdominal Exam: Normal Bowel Sounds, Soft, Non-Tender, No Organomegaly, No Distention (Female) Exam: Normal External Exam, Enlarged Uterus ( uterus, firm U+1), Vaginal Bleeding (Small to moderate rubra lochia, no clots) Rectal (Female) Exam: Deferred Back Exam: Reports: Normal Inspection, Full Range of Motion Extremities: Normal Inspection, Normal Range of Motion, Non-Tender, No Pedal Edema, Normal Capillary Refill Skin: Reports: Warm, Dry, Intact Wound/Incisions: Reports: No Drainage Neurological: Reports: No New Focal Deficit Psy/Mental Status: Reports: Alert, Normal Affect, Normal Mood
[2020-09-12] MEDS: Docusate Sodium 100 MG Cap PO SCH (08:57)
[2020-09-12] MEDS ORDERED: Iron Polysaccharides Complex 150 MG Cap PO SCH (09:00)
== END 2020-09-12 17:30 | disposition home or self-care (01) | DRG 560 ==
LOC: MW.OBCHECK 00:42 → MW.OB 00:43 → MW.OBCHECK 04:26 → OBSVTOIN 12:35 → MW.OB 15:57
PROVIDERS: ADMIT Obstetrics & Gynecology; ATTEND Obstetrics & Gynecology
PROC: 10E0XZZ Delivery of Products of Conception, External Approach (ICD-10-PCS; principal; 2020-09-11)
PROC: 0KQM0ZZ Repair Perineum Muscle, Open Approach (ICD-10-PCS; 2020-09-11)
PROC: 3E0R3BZ Introduction of Anesthetic Agent into Spinal Canal, Percutaneous Approach (ICD-10-PCS; 2020-09-11)
PROC: 00HU33Z Insertion of Infusion Device into Spinal Canal, Percutaneous Approach (ICD-10-PCS; 2020-09-11)
DX: O48.0 Post-term pregnancy (principal); Z3A.41 41 weeks gestation of pregnancy; Z37.0 Single live birth; O70.1 Second degree perineal laceration during delivery; Z20.822 Contact with and (suspected) exposure to COVID-19
CPT/HCPCS: 36415; 51702; 59025; 59409; 85014; 85018; 85025; 86592; 86850; 86900; 86901; A9270-GY; J2300; J2405; J2590; J3490; J7120; U0002

== ENCOUNTER 2022-02-28 11:07 | Emergency (ER) | payer BC ==
[2022-02-28] MEDS ORDERED: traMADol 50 MG Tab PO ONE (12:19)
== END 2022-02-28 13:40 | disposition home or self-care (01) ==
LOC: MW.ED 11:07
DX: S91.201A Unspecified open wound of right great toe with damage to nail, initial encounter (principal); W23.1XXA Caught, crushed, jammed, or pinched between stationary objects, initial encounter
CPT/HCPCS: 73660; 99283; A9270

== ENCOUNTER 2023-03-07 12:03 | Emergency (ER) | payer SELFPAY ==
[2023-03-07 12:28] LABS: BASOPHILS ABSOLUTE AUTO 0.02 K/uL (0.00-0.20); BASOPHILS PERCENT AUTO 0.4 % (0.0-1.0); EOSINOPHILS ABSOLUTE AUTO 0.04 K/uL (0.00-0.45); EOSINOPHILS PERCENT AUTO 0.8 % (0.0-6.0); HEMATOCRIT 36.1 % (37.0-47.0); HEMOGLOBIN 12.3 g/dL (12.0-16.0); IMMATURE GRAN ABSOLUTE AUTO 0.02 K/uL (0.00-0.05); IMMATURE GRAN PERCENT AUTO 0.4 % (0.0-0.4); LYMPHOCYTES ABSOLUTE AUTO 1.98 K/uL (1.00-4.80); LYMPHOCYTES PERCENT AUTO 39.5 % (24.0-44.0); MEAN CORPUSCULAR HEMOGLOBIN 33.1 pg (28.0-32.0); MEAN CORPUSCULAR HGB CONC 34.1 g/dL (32.0-36.0); MEAN PLATELET VOLUME 10.7 fL (9.4-12.3); NEUTROPHILS ABSOLUTE AUTO 2.65 K/uL (1.80-7.70); NEUTROPHILS PERCENT AUTO 52.9 % (41.0-71.0); PLATELET COUNT,PLT 156 K/uL (150-400); RED BLOOD CELL COUNT 3.72 M/uL (4.10-5.30); WHITE BLOOD CELL COUNT,WBC 5.01 K/uL (3.9-11.3)
[2023-03-07 13:21] LABS: A/G RATIO 1.1 (0.9-1.6); ALANINE AMINOTRANSFERASE,ALT 16 IU/L (14-63); ALBUMIN 3.6 g/dL (3.4-5.0); ALKALINE PHOSPHATASE 67 U/L (46-116); ASPARTATE AMNIOTRANSFERASE,AST 14 IU/L (15-37); BILIRUBIN TOTAL 0.3 mg/dL (0.2-1.0); BLOOD UREA NITROGEN,BUN 13 mg/dL (7.0-18.0); CARBON DIOXIDE,CO2 25.6 mmol/L (21.0-32.0); CHLORIDE,CL 107 mmol/L (98-107); CREATININE 0.8 mg/dL (0.6-1.0); GLUCOSE RANDOM 99 mg/dL (74-106); POTASSIUM,K 4.1 mmol/L (3.5-5.1); PROTEIN TOTAL,TP 6.9 g/dL (6.4-8.2); SODIUM,NA 143 mmol/L (136-145)
[2023-03-07 13:31] LABS: ESTIMATED GFR 107 mL/min (>60)
== END 2023-03-07 14:32 | disposition home or self-care (01) ==
LOC: MW.ED 12:03
DX: O03.9 Complete or unspecified spontaneous abortion without complication (principal); Z79.899 Other long term (current) drug therapy; Z86.16 Personal history of COVID-19
CPT/HCPCS: 36415; 76801; 76801-26; 80053; 84702; 85025; 86900; 86901; 99282; 99284

== ENCOUNTER 2024-05-27 18:15 | Emergency (ER) | payer SELFPAY ==
[2024-05-27] MEDS: traMADol 50 MG Tab PO STA (18:47)
== END 2024-05-27 19:18 | disposition home or self-care (01) ==
LOC: MW.ED 18:15
DX: S93.492A Sprain of other ligament of left ankle, initial encounter (principal); F17.210 Nicotine dependence, cigarettes, uncomplicated; Z90.49 Acquired absence of other specified parts of digestive tract; Z75.8 Other problems related to medical facilities and other health care; X50.1XXA Overexertion from prolonged static or awkward postures, initial encounter; Y92.59 Other trade areas as the place of occurrence of the external cause
CPT/HCPCS: 73610; 99283; A9270